=== PATIENT | female | born 1990 | race African-American/Black ===

== ENCOUNTER 2020-05-22 07:15 | Inpatient (IN) | payer OTHER ==
[2020-05-22] MEDS ORDERED: OXYTOCIN 30 UNITS in 0.9% NS 30 UNIT/500 ML INFUS.BAG IVPB ONE (09:29)
[2020-05-22] MEDS: ELECTROLYTE-148 SOLN 1,000 ML IV SCH ×3 (09:30→22:22)
[2020-05-22 09:40] LABS: BASO % 0.4 % (0-2.0); EOS % 2.1 % (0-4.5); HEMATOCRIT 32.7 % (32.4-45.2); HEMOGLOBIN 10.9 GM/dL (10.7-15.3); LYMPH % 24.6 % (8-40); MCHC 33.3 g/dl (32.0-36.0); MEAN CELL VOLUME 87.1 fl (80-96); MEAN PLT VOLUME 10.5 fl (7.5-11.1); MONO % 10.9 % (3.8-10.2); PLATELET COUNT 103 K/MM3 (134-434); RBC 3.76 M/mm3 (3.60-5.2); RDW 13.9 % (11.6-15.6); WHITE BLOOD COUNT 6.1 K/mm3 (4.0-10.0)
[2020-05-22 09:49] LABS: INR 0.9 (0.83-1.09); PROTHROMBIN TIME (PATIENT) 10.6 SEC (9.7-13.0)
[2020-05-22 09:52] LABS: ACTIVATED PTT 28.8 SECONDS (25.2-36.5)
[2020-05-22] MEDS: OXYTOCIN 30 UNITS in 0.9% NS 30 UNIT/500 ML INFUS.BAG IVPB SCH (10:00)
[2020-05-22 10:16] LABS: BLOOD UREA NITROGEN 3.2 mg/dL (7-18); CALCIUM 8.6 mg/dL (8.5-10.1); CREATININE 0.4 mg/dL (0.55-1.3); POTASSIUM 3.9 mmol/L (3.5-5.1)
[2020-05-22 10:39] VITALS: BMI 29.6
[2020-05-22 12:39] LABS: EPI CELLS 19 /uL (0-25.1); HYALINE CASTS 1 /uL (0-3.1); URINE APPEARANCE CLEAR; URINE BACTERIA 945 /uL (0-1359); URINE BILIRUBIN NEGATIVE (NEGATIVE); URINE COLOR YELLOW; URINE GLUCOSE (UA) NEGATIVE (NEGATIVE); URINE KETONE NEGATIVE (NEGATIVE); URINE LEUK ESTERASE 3+ (NEGATIVE); URINE NITRITE NEGATIVE (NEGATIVE); URINE PROTEIN NEGATIVE (NEGATIVE); URINE RBC 6 /uL (0-23.9); URINE UROBILINOGEN 0.2 mg/dL (0.2-1.0); URINE WBC 163 /uL (0-25.8)
[2020-05-22] MEDS ORDERED: PROMETHAZINE HCL 25 MG/1 ML VIAL ONE ×2 (13:10→18:38)
[2020-05-22] MEDS ORDERED: BUTORPHANOL TARTRATE 2 MG/ML VIAL ONE ×2 (13:10→18:38)
[2020-05-22] MEDS ORDERED: PROMETHAZINE HCL 25 MG/1 ML VIAL IVPUSH ONE ×2 (13:26→18:48)
[2020-05-22] MEDS ORDERED: BUTORPHANOL TARTRATE 1 MG/ML VIAL IVPB ONE ×2 (13:26→18:48)
--- NOTE | 2020-05-22 18:53 | HP ---
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: No: Alzheimer's, CVA, Dementia, Migraine, Multiple Sclerosis, Peripheral Neuropathy, Parkinson's, Seizure, Syncope, TIA, Vertigo, Other Cardiovascular: No: AFIB, Aneurysm, Aortic Insufficiency, Aortic Stenosis, CAD, CHF, Deep Vein Thrombosis, HTN, Hyperlipdemia, IA, Mitral Insufficiency, Mitral Stenosis, Murmur, Pulmonary Hypertension, Other Pulmonary: No: Asthma, Bronchitis, Cancer, COPD, O2 Dependent, Pneumonia, Previously Intubated, Pulmonary Embolus, Pulmonary Fibrosis, Sleep Apnea, Other Gastrointestinal: No: Ascites, Cancer, Constipation, Crohn's Disease, Diverticulitis, Diverticulosis, Esophageal Varices, Gastritis, GERD, GI Bleed, Hemorrhoids, Hiatal Hernia, Inflamatory Bowel Disease, Irritable Bowel Disease, Pancreatitis, Peptic Ulcer Disease, Ulcerative Colitis, Other Hepatobiliary: No: Cirrhosis, Cholelithiasis, Cholecystitis, Choledocholithiasis, Hepatitis A, Hepatitis B, Hepatitis C, Other Renal/: No: Renal Failure, Renal Inusuff, BPH, Cancer, Hematuria, Hemodialysis, Neurogenic Bladder, Renal Calculi, UTI, Other Reproductive: No: Ectopic , Endometriosis, Fibroids, PID, Polycystic Ovary Syndrome, Postmenopausal, Other ...: 1 ...Para: 0 ...Term: 0 ...: 0 ...Spon : 0 ...Induced : 0 ...Living Children: 0 ...Multiple Gestation: 0 ... Weeks Gestation by Dates: 41.1 ...EDC by Dates: 05/14/20 Heme/Onc: No: Anemia, B12 Deficiency, Bleeding Disorder, Cancer, Current Chemotherapy, Current Radiation Therapy, Hemochromatosis, Hypercoaguable State, Myeloproliferative Synd, Sickle Cell Disease, Sickle Cell Trait, Thrombocytopenia, Other Infectious Disease: No: AIDS, C-Diff, Herpes Zoster, HIV, MRSA, STD's, Tuberculosis, VREF, Other Psych: No: Addictions, Anxiety, Bipolar, Depression, Panic, Psychosis, Schizophrenia, Other Musculoskeletal: No: Bursitis, Chronic low back pain, Hemiparesis, Hemiplegia, Osteoarthritis, Paraplegia, Other Rheumatology: No: Fibromyalgia, Gout, Lupus, Rheumatoid Arthritis, Sarcoidosis, Vasculitis, Other ENT: No: Allergic Rhinitis, Sinusitis, Other Endocrine: No: Oliver's Disease, [place]'s Disease, Diabetes Insipidus, Diabetes Mellitus, Hyperparathyroidism, Hyperthyroidism, Hypothyroidism, Osteopenia, SIADH, Other Dermatology: No: Basal Cell, Cellulitis, Eczema, Melanoma, Psoriasis, Squamous Cell, Other - Past Surgical History Past Surgical History: No: None, AAA Repair, AICD, Amputation, Appendectomy, Arthrosocopy, AV Fistula/Graft, Bariatric Surgery, Breast Biopsy, Bypass, CABG, Carotid Endarterectomy, Cataract Removal, Cholecystectomy, Colectomy, Colonoscopy, Colostomy, Craniotomy, , Cystectomy, Hernia Repair, Hysterectomy, Ileal Conduit, Ileosotomy, Joint Replacement, Kidney Transplant, Laminectomy, Liver Transplant, Mastectomy, Nephrectomy, Oopherectomy, Orchiectomy, Permanent Pacemaker, Prostatectomy, Splenectomy, Stent, Thoracotomy, TURP, Tonsillectomy, Tubal Ligation, Upper Endoscopy, Valve Replacement, Vasectomy, Vein Stripping/Ligation Hx Myomectomy: No Hx Transabdominal Cerclage: No - Advance Directives Advance Directives: Yes: Living Will - Smoking History Smoking history: Never smoked Have you smoked in the past 12 months: No - Alcohol/Substance Use Hx Alcohol Use: No History of Substance Use: reports: None - Social History Usual Living Arrangement: Yes: With Significant Other Do you think of yourself as: Straight/Heterosexual ADL: Independent History of Recent Travel: No Home Medications - Allergies Allergies/Adverse Reactions: Allergies Allergy/AdvReac Type Severity Reaction Status Date / Time No Known Allergies Allergy Verified 05/22/20 10:27 - Home Medications Home Medications: Ambulatory Orders Vitamins (Sjr) - 1 tab PO DAILY 05/22/20 Family Medical History Family History: Denies Review of Systems - Review of Systems Constitutional: reports: No Symptoms Eyes: reports: No Symptoms HENT: reports: No Symptoms Neck: reports: No Symptoms Cardiovascular: reports: No Symptoms Respiratory: reports: No Symptoms Gastrointestinal: reports: No Symptoms Genitourinary: reports: No Symptoms Breasts: reports: No Symptoms Reported Musculoskeletal: reports: No Symptoms Integumentary: reports: No Symptoms Neurological: reports: No Symptoms Endocrine: reports: No Symptoms Hematology/Lymphatic: reports: No Symptoms Psychiatric: reports: No Symptoms Physical Exam - Maternity Vital Signs: Vital Signs Temperature 98.2 F 05/22/20 18:00 Pulse Rate 71 05/22/20 16:00 Respiratory Rate 20 05/22/20 16:00 Blood Pressure 126/85 05/22/20 16:00 O2 Sat by Pulse Oximetry (%) Constitutional: Yes: Well Nourished, No Distress, Calm Eyes: Yes: WNL, Conjunctiva Clear, EOM Intact HENT: Yes: WNL, Atraumatic, Normocephalic Neck: Yes: WNL, Supple, Trachea Midline Cardiovascular: Yes: WNL, Regular Rate and Rhythm Lungs: Clear to auscultation Breast(s): Yes: WNL - Abdominal Exam/OB Fundal Height: 42 Number of Fetuses: Single Presentation: Vertex Contractions: Yes Regularity: Irregular Intensity: Mild Monitor Mode: External Heart Rate (range): 150 Heart Rate Location: [facility] Category: I Accelerations: Uniform Decelerations: None - Vaginal Exam/OB Vaginal Bleeding: No Speculum Exam: No Dilatation (cm): 1 Effacement (%): 50 Amniotic Membrane Status: Intact Presentation: Vertex/Position Station: -2 - Physical Exam Musculoskeletal: Yes: WNL Extremities: Yes: WNL Edema: Yes Integumentary: Yes: WNL Deep Tendon Reflex Grade: Normal +2 ...Motor Strength: WNL Psychiatric: Yes: WNL, Alert, Oriented - Labs Lab Results: CBC, BMP 05/22/20 09:27 05/22/20 09:27 Hemorrhage Risk Assessment - Risk Factors Medium Risk Factors: Yes: None High Risk Factors: Yes: None Risk Score: 1 Risk Level: Medium Risk Assessment/Plan for indcution
--- NOTE | 2020-05-22 18:54 | PN ---
Progress Note (short form) - Note Progress Note: 1pm, 1 cm, arom, clear, 60%, -2, uc q 5 min, pain level 7/10, continue pitocin , asking for stadol
--- NOTE | 2020-05-22 18:55 | PN ---
Progress Note (short form) - Note Progress Note: 630 pm, 1 to 2 cm uc q 3 min, cat 1 nst, decline epidural continue pitocin
[2020-05-22] MEDS ORDERED: CITRIC ACID/SODIUM CITRATE 30 ML UNIT-DOSE CUP PO ONE (22:06)
--- NOTE | 2020-05-22 22:09 | PN ---
Progress Note (short form) - Note Progress Note: 10 pm , no cervical change, 1 to 2 cm, pain 10 /10, uc q 3 min, cat 1 nst, for c s
[2020-05-22] MEDS ORDERED: morphine SULFATE/PF 0.5 MG/ML (2cc Syringe - QUVA) ONE (22:36)
[2020-05-22] MEDS ORDERED: OXYTOCIN 10 UNITS/ML VIAL ONE (22:45)
[2020-05-22] MEDS ORDERED: KETOROLAC TROMETHAMINE 30 MG/1 ML VIAL ONE (22:45)
[2020-05-22] MEDS ORDERED: ceFAZolin SODIUM 1 GM VIAL ONE (22:45)
--- NOTE | 2020-05-22 23:36 | PN ---
Progress Note (short form) - Note Progress Note: I assisted Dr. Glass at c/section for the entirety of the case.
[2020-05-22] MEDS ORDERED: IBUPROFEN 800 MG/8 ML IJ IVPB PRN (23:44)
[2020-05-22] MEDS ORDERED: SENNOSIDES/DOCUSATE COMBO (SENNA PLUS) TABLET (UD) PO PRN (23:44)
[2020-05-22] MEDS ORDERED: METHYLERGONOVINE MALEATE 0.2 MG/1 ML AMP IM PRN (23:44)
[2020-05-22] MEDS ORDERED: oxyCODONE HCL 5 MG TABLET PO PRN (23:44)
[2020-05-22] MEDS: OXYTOCIN 20 UNITS in 0.9% NS 20 UNIT/1,000 ML INFUS.BAG IV SCH (23:45)
[2020-05-22] MEDS ORDERED: ONDANSETRON 4 MG/2 ML VIAL IVPUSH PRN (23:48)
--- NOTE | 2020-05-22 23:52 | OP ---
Operative Note - Note: Operative Date: 05/22/20 Pre-Operative Diagnosis: failure to progress Operation: primary ltc s Findings: op Post-Operative Diagnosis: Same as Pre-op Surgeon: Bill Glass Agent Telegrapher: Rashard Geronimo Anesthesia: Spinal Estimated Blood Loss (mls): 500 (no complications , fibroids x 3 ) Operative Report Dictated: Yes
[2020-05-23 08:41] LABS: BASO % 0.3 % (0-2.0); EOS % 0.6 % (0-4.5); HEMATOCRIT 29.4 % (32.4-45.2); LYMPH % 17.6 % (8-40); MCH 29.3 pg (25.7-33.7); MCHC 33.9 g/dl (32.0-36.0); MEAN CELL VOLUME 86.3 fl (80-96); MEAN PLT VOLUME 11.3 fl (7.5-11.1); MONO % 7.8 % (3.8-10.2); NEUT % 73.7 % (42.8-82.8); PLATELET COUNT 100 K/MM3 (134-434); RBC 3.41 M/mm3 (3.60-5.2); RDW 13.9 % (11.6-15.6); WHITE BLOOD COUNT 9.4 K/mm3 (4.0-10.0)
[2020-05-23] MEDS ORDERED: DIPHTH,PERTUSS(ACELL),TET 0.5 ML DISP.SYRIN IM ONE (10:00)
[2020-05-23] MEDS: PRENATAL VITAMINS W/ FOLIC ACID TABLET (FP) PO SCH (10:58)
[2020-05-23] MEDS: IBUPROFEN 600 MG TABLET (FP) PO PRN (15:19)
[2020-05-23] MEDS: ACETAMINOPHEN 325 MG TABLET (FP) PO PRN (15:19)
--- NOTE | 2020-05-23 15:29 | PN ---
Post Progress Note Post Day: 1 Type of Delivery: Primary C/S Vital Signs: Vital Signs Temperature 98.6 F 05/23/20 05:28 Pulse Rate 97 H 05/23/20 05:28 Respiratory Rate 17 05/23/20 13:00 Blood Pressure 126/74 05/23/20 05:28 O2 Sat by Pulse Oximetry (%) 96 05/23/20 05:28 Breast Exam: Yes: Soft Uterus: Yes: Fundus Firm, Fundus below umbilicus Incision: Yes: Dressing dry and intact, Sutures intact Abdomen/GI: Yes: Abdomen soft, Passing flatus, Tolerating PO Lochia: Yes: Serosa Lochia, amount: Small Extremities: Yes: Calves non-tender - Labs Labs: CBC WBC 9.4 K/mm3 (4.0-10.0) 05/23/20 08:05 RBC 3.41 M/mm3 (3.60-5.2) L 05/23/20 08:05 Hgb 10.0 GM/dL (10.7-15.3) L 05/23/20 08:05 Hct 29.4 % (32.4-45.2) L 05/23/20 08:05 MCV 86.3 fl (80-96) 05/23/20 08:05 MCH 29.3 pg (25.7-33.7) 05/23/20 08:05 MCHC 33.9 g/dl (32.0-36.0) 05/23/20 08:05 RDW 13.9 % (11.6-15.6) 05/23/20 08:05 Plt Count 100 K/MM3 (134-434) L 05/23/20 08:05 MPV 11.3 fl (7.5-11.1) H 05/23/20 08:05 Absolute Neuts (auto) 6.9 K/mm3 (1.5-8.0) 05/23/20 08:05 Neutrophils % 73.7 % (42.8-82.8) 05/23/20 08:05 Lymphocytes % 17.6 % (8-40) D 05/23/20 08:05 Monocytes % 7.8 % (3.8-10.2) 05/23/20 08:05 Eosinophils % 0.6 % (0-4.5) 05/23/20 08:05 Basophils % 0.3 % (0-2.0) 05/23/20 08:05 Nucleated RBC % 0 % (0-0) 05/23/20 08:05
--- NOTE | 2020-05-23 15:31 | DS ---
Physical Exam-[employer] Vital Signs: Vital Signs Temperature 98.6 F 05/23/20 05:28 Pulse Rate 97 H 05/23/20 05:28 Respiratory Rate 17 05/23/20 13:00 Blood Pressure 126/74 05/23/20 05:28 O2 Sat by Pulse Oximetry (%) 96 05/23/20 05:28 Constitutional: Yes: Well Nourished, No Distress, Calm Eyes: Yes: WNL, Conjunctiva Clear, EOM Intact HENT: Yes: WNL, Atraumatic, Normocephalic Neck: Yes: WNL, Supple, Trachea Midline Cardiovascular: Yes: WNL, Regular Rate and Rhythm Respiratory: Yes: WNL, Regular, CTA Bilaterally Gastrointestinal: Yes: WNL, Normal Bowel Sounds, Soft ...Rectal Exam: Yes: WNL Renal/: Yes: WNL Pelvis: Yes: WNL External Genitalia: Yes: Normal Internal Exam Deferred: Yes Vaginal Exam: Yes: Normal Cervix: Yes: Normal Uterus: Yes: Normal Adnexa: Normal: Bilateral ....Post : Yes: Uterus firm, Uterus non-tender Breast(s): Yes: WNL Musculoskeletal: Yes: WNL Extremities: Yes: WNL Edema: Yes Integumentary: Yes: WNL Wound/Incision: Yes: Clean/Dry, Well Approximated Neurological: Yes: WNL, Alert, Oriented ...Motor Strength: WNL Psychiatric: Yes: WNL, Alert, Oriented Labs: CBC, BMP 05/23/20 08:05 05/22/20 09:27 Delivery - Delivery Section: Primary Type of Anesthesia: Spinal Delivery, Single - Stages of Labor Date 1st Stage Initiatied: 05/22/20 Time 1st Stage Initiated: 13:10 Date of Delivery: 05/22/20 Time of Delivery: 22:59 Time Placenta Delivered: 23:01 - Condition of Infant Postmaster/Ward Assistant Present: Yes Name: Arina Rachel Infant Gender: Male Weight: 3.714 kg Position: OP Total Hours ROM (Hrs/Mins): 10h2m - 1 Minute Total Score: 9 5 Minutes Total Score: 9 - Wells Feeding Plan Initial Plan: Elected not to breastfeed exclusively throughout hospitalization Discharge Summary Problems reviewed: Yes Reason For Visit: INDUCTION OF LABOR Procedures: Principal: primary lt c s Other Procedures: uneventful Condition: Good - Instructions Diet, Activity, Other Instructions: Physical activity Resume your normal everyday activity as tolerated no heavy lifting or exercise until seen by your surgeon. You may walk unlimited harriett of and climb stairs. You may resume driving the car when you feel safe and comfortable behind the wheel. No sexual activity as instructed. Wound care If you have a bandage, leave it on, and keep dry for 48-72 hours. After that time discard the outer bandage. If they are tapes on the skin under the out of bandage leave them in place. They will peel off in the next 7 to 10 days. Do Not Peel them off. You may shower the day after surgery. If there are tapes present on the skin, you may shower over them. Diet There are no dietary restrictions. Eat healthy, high-fiber foods. Drink 6 to 8 glasses of liquid each day. This will assist in keeping your bowels are regular. Pain management You may take Tylenol or acetaminophen or Ibuprofen (for example, Motrin, Advil etc.) from my pain prescription medication is ordered should be taken as prescribed for moderate to severe pain. Call MD for any of the following: call dr carrillo for 2 weeks appoint Severe pain not relieved by medication Fever of 101 or higher Excessive bleeding or drainage on dressing Inability to urinate Disposition: HOME - Home Medications Comprehensive Discharge Medication List: Ambulatory Orders Vitamins (Sjr) - 1 tab PO DAILY 05/22/20 Prescription Drug Monitoring Program (I-STOP) results: I-STOP reviewed and no issues identified
[2020-05-23] MEDS ORDERED: BISACODYL 10 MG SUPP.RECT RC PRN (23:44)
[2020-05-24] MEDS: ACETAMINOPHEN 325 MG TABLET (FP) PO PRN ×4 (03:11→20:56)
[2020-05-24] MEDS: IBUPROFEN 600 MG TABLET (FP) PO PRN (03:12)
[2020-05-24] MEDS: DEXTROSE 5%-LACTATED RINGERS 1,000 ML IV SCH ×2 (04:35→20:54)
[2020-05-24] MEDS: OXYTOCIN 30 UNITS in 0.9% NS 30 UNIT/500 ML INFUS.BAG IVPB SCH ×2 (04:35→20:54)
[2020-05-24] MEDS: ELECTROLYTE-148 SOLN 1,000 ML IV SCH ×3 (04:35→20:54)
[2020-05-24] MEDS: OXYTOCIN 20 UNITS in 0.9% NS 20 UNIT/1,000 ML INFUS.BAG IV SCH (04:36)
[2020-05-24] MEDS: oxyCODONE HCL 5 MG TABLET PO PRN ×3 (06:05→20:56)
[2020-05-24] MEDS: PRENATAL VITAMINS W/ FOLIC ACID TABLET (FP) PO SCH (09:08)
[2020-05-24] MEDS: SIMETHICONE 80 MG TAB.CHEW (FP) PO PRN (09:12)
--- NOTE | 2020-05-25 07:34 | PN ---
Post Progress Note Post Day: 3 Type of Delivery: Primary C/S Vital Signs: Vital Signs Temperature 98.4 F 05/24/20 20:44 Pulse Rate 98 H 05/24/20 20:44 Respiratory Rate 18 05/24/20 20:44 Blood Pressure 131/80 05/24/20 20:44 O2 Sat by Pulse Oximetry (%) 97 05/24/20 20:44 Breast Exam: Yes: Soft Uterus: Yes: Fundus Firm, Fundus below umbilicus Incision: Yes: Dressing dry and intact, Sutures intact Abdomen/GI: Yes: Abdomen soft, Passing flatus, Tolerating PO Lochia: Yes: Serosa Lochia, amount: Small Extremities: Yes: Calves non-tender Perineum: Yes: Intact Activity: Ambulating (dc pt home today ) - Labs Labs: CBC WBC 9.4 K/mm3 (4.0-10.0) 05/23/20 08:05 RBC 3.41 M/mm3 (3.60-5.2) L 05/23/20 08:05 Hgb 10.0 GM/dL (10.7-15.3) L 05/23/20 08:05 Hct 29.4 % (32.4-45.2) L 05/23/20 08:05 MCV 86.3 fl (80-96) 05/23/20 08:05 MCH 29.3 pg (25.7-33.7) 05/23/20 08:05 MCHC 33.9 g/dl (32.0-36.0) 05/23/20 08:05 RDW 13.9 % (11.6-15.6) 05/23/20 08:05 Plt Count 100 K/MM3 (134-434) L 05/23/20 08:05 MPV 11.3 fl (7.5-11.1) H 05/23/20 08:05 Absolute Neuts (auto) 6.9 K/mm3 (1.5-8.0) 05/23/20 08:05 Neutrophils % 73.7 % (42.8-82.8) 05/23/20 08:05 Lymphocytes % 17.6 % (8-40) D 05/23/20 08:05 Monocytes % 7.8 % (3.8-10.2) 05/23/20 08:05 Eosinophils % 0.6 % (0-4.5) 05/23/20 08:05 Basophils % 0.3 % (0-2.0) 05/23/20 08:05 Nucleated RBC % 0 % (0-0) 05/23/20 08:05
[2020-05-25] MEDS: oxyCODONE HCL 5 MG TABLET PO PRN (07:55)
[2020-05-25] MEDS: IBUPROFEN 600 MG TABLET (FP) PO PRN (07:55)
[2020-05-25] MEDS: SIMETHICONE 80 MG TAB.CHEW (FP) PO PRN (07:55)
[2020-05-25 10:01] VITALS: BP 131/84; PULSE 90; TEMP 98
[2020-05-25] MEDS: PRENATAL VITAMINS W/ FOLIC ACID TABLET (FP) PO SCH (10:49)
--- NOTE | 2020-05-29 17:20 | PATH ---
Surgical Pathology Report Patient Name: ADRIANA BOGGS Med. Rec. 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 TRIVASCULAR CORD. MEMBRANES WITH NO DIAGNOSTIC ABNORMALITIES. Electronically Signed Theresa Stone M.D. Gross Description The specimen is received fresh labeled placenta and is a 491 gram, 20.5 x 19.0 x 2.5 cm. placenta with attached membranes and umbilical cord. The attached membranes are jacobo, translucent with focal opacities and insert marginally. The umbilical cord measures 44 cm. in length and averages 1.1 cm. in diameter. The cord inserts eccentrically, 5.5 cm. to the nearest margin. No true knots or strictures are identified. Cut surface of the umbilical cord reveals 3 vessels. The surface is bautista-blue with minimal fibrin deposition and appropriate caliber vessels. The maternal surface is red-brown with focal defects. Sectioning reveals red-brown, spongy parenchyma. No lesions are identified. [place] sections are submitted in three cassettes as follows: 1- membrane rolls and umbilical cord; 2-3- full thickness sections of placenta. /05/28/2020 saudi05/28/2020
--- NOTE | 2020-05-31 08:52 | OP ---
DATE OF OPERATION: 05/22/2020 PREOPERATIVE DIAGNOSIS: Failure to progress, occiput posterior presentation. POSTOPERATIVE DIAGNOSIS: Failure to progress, occiput posterior presentation. PROCEDURE: Primary low transverse section. SURGEON: Bill Glass MD CORPORATE INTERN: Rashard Geronimo MD ANESTHESIA: Spinal. INDICATIONS: This is a 30-year-old female patient 41 weeks and 1 day , came into the hospital for induction process and the patient had artificial rupture of membranes, had Pitocin and the patient was in labor for more than 12 to 14 hours and patient's cervix still about 2 cm, and the patient was suspected to have more than 8-pound baby as macrosomia and the patient was in severe pain and patient started having some variable decelerations and some nonreassuring heart rate tracing. So, patient was in a lot of pain. Pain level 8 out of 10 and patient with the above indication, more than 14 to 16 hours of labor and no progress, and patient was taken to the OR for failure to progress. PROCEDURE: So, patient was taken to the OR, placed on the operating table in the supine position after spinal anesthesia was obtained. The patient's abdomen and pelvis were prepped and draped in the usual sterile manner. Pfannenstiel incision was made. Incision was made through skin, subcutaneous tissue until the fascia was nicked in the midline. The fascia was extended bilaterally. Intraperitoneal cavity was entered. Bladder flap was not created. Low transverse segment was entered. Baby was delivered from OP presentation. Baby was hand delivered to the health care liaison after umbilical cord doubly clamped and cut. Placenta was removed. Uterus was closed in a single layer, first layer interlocking Vicryl sutures. Good hemostasis. Both gutters cleaned. Both fallopian tubes and ovaries were within normal limits. However, there were 3 fibroids seen on the uterus and they all appeared to be about 3 x 4 cm, anterior and posterior fundal part of the uterus. No complications. Draining clear urine. Blood loss about 500 mL. Peritoneum was closed. Fascia was closed. Skin was closed. Transferred to recovery room in stable condition. MD NAOMI CORONEL/[id number]
== END 2020-05-25 13:30 | disposition home or self-care (01) | DRG 540 ==
LOC: JLDR 07:15 → J3N 05-23 01:33 → J3W 05-24 15:36
PROVIDERS: ADMIT Obstetrics & Gynecology; ATTEND Obstetrics & Gynecology
PROC: 10D00Z1 Extraction of Products of Conception, Low, Open Approach (ICD-10-PCS; principal; 2020-05-22)
PROC: 10907ZC Drainage of Amniotic Fluid, Therapeutic from Products of Conception, Via Natural or Artificial Opening (ICD-10-PCS; 2020-05-22)
PROC: 3E033VJ Introduction of Other Hormone into Peripheral Vein, Percutaneous Approach (ICD-10-PCS; 2020-05-22)
DX: O48.0 Post-term pregnancy (principal); Z3A.41 41 weeks gestation of pregnancy; Z37.0 Single live birth; O62.0 Primary inadequate contractions; O32.4XX0 Maternal care for high head at term, not applicable or unspecified; O34.13 Maternal care for benign tumor of corpus uteri, third trimester; D25.9 Leiomyoma of uterus, unspecified
CPT/HCPCS: 36415; 80048; 81003; 85025; 85610; 85730; 86780; 86850; 86900; 86901; 87389; 88307-TC; 90715

== ENCOUNTER 2021-10-07 08:00 | Inpatient (IN) | payer OTHER ==
[2021-10-08] MEDS ORDERED: ELECTROLYTE-148 SOLN 500 ML IV ONE (11:30)
[2021-10-08] MEDS ORDERED: CITRIC ACID/SODIUM CITRATE 30 ML UNIT-DOSE CUP PO ONE (11:30)
[2021-10-08 11:50] VITALS: BMI 27.3
[2021-10-08] MEDS: ELECTROLYTE-148 SOLN 1,000 ML IV SCH (12:00)
[2021-10-08] MEDS ORDERED: BUPIVACAINE HCL/PF 0.25% (2.5MG/ML) 10 ML VIAL ONE (13:06)
[2021-10-08] MEDS ORDERED: PHENYLEPHRINE HCL 10 MG/1 ML SINGLE DOSE VIAL ONE (13:28)
[2021-10-08] MEDS ORDERED: PROPOFOL 20 ML ONE ×2 (13:40)
[2021-10-08] MEDS ORDERED: ACETAMINOPHEN 325 MG TABLET (FP) PO PRN (15:04)
[2021-10-08] MEDS ORDERED: METHYLERGONOVINE MALEATE 0.2 MG/1 ML AMP IM PRN (15:04)
[2021-10-08] MEDS ORDERED: IBUPROFEN 800 MG/8 ML IJ IVPB PRN (15:04)
[2021-10-08] MEDS ORDERED: OXYTOCIN 20 UNITS in 0.9% NS 20 UNIT/1,000 ML INFUS.BAG IV ONE (15:40)
[2021-10-08] MEDS: OXYTOCIN 20 UNITS in 0.9% NS 20 UNIT/1,000 ML INFUS.BAG IV SCH (15:40)
[2021-10-09 08:28] LABS: BASO % 0.3 % (0-2.0); EOS % 1.9 % (0-4.5); HEMATOCRIT 26.1 % (32.4-45.2); HEMOGLOBIN 8.5 GM/dL (10.7-15.3); LYMPH % 21.2 % (8-40); MCH 27.9 pg (25.7-33.7); MCHC 32.5 g/dl (32.0-36.0); MEAN CELL VOLUME 85.6 fl (80-96); MEAN PLT VOLUME 10.7 fl (7.5-11.1); MONO % 8.4 % (3.8-10.2); NEUT % 68.2 % (42.8-82.8); PLATELET COUNT 120 10^3/uL (134-434); RBC 3.04 M/mm3 (3.60-5.2); RDW 13.8 % (11.6-15.6); WHITE BLOOD COUNT 7.5 K/mm3 (4.0-10.0)
[2021-10-09] MEDS: oxyCODONE HCL 5 MG TABLET PO PRN ×3 (09:20→21:08)
[2021-10-09] MEDS: PRENATAL VITAMINS W/ FOLIC ACID TABLET (FP) PO SCH (09:20)
[2021-10-09] MEDS: SIMETHICONE 80 MG TAB.CHEW (FP) PO PRN ×2 (14:51→21:08)
[2021-10-09] MEDS ORDERED: BISACODYL 10 MG SUPP.RECT RC PRN (15:04)
[2021-10-09] MEDS: IBUPROFEN 600 MG TABLET (FP) PO PRN (17:06)
[2021-10-09] MEDS: OXYTOCIN 20 UNITS in 0.9% NS 20 UNIT/1,000 ML INFUS.BAG IV SCH (19:54)
[2021-10-09] MEDS: ELECTROLYTE-148 SOLN 1,000 ML IV SCH (19:54)
[2021-10-09] MEDS: SENNOSIDES/DOCUSATE COMBO (SENNA PLUS) TABLET (UD) PO PRN (21:08)
[2021-10-10] MEDS: oxyCODONE HCL 5 MG TABLET PO PRN ×3 (08:28→21:00)
[2021-10-10] MEDS: SIMETHICONE 80 MG TAB.CHEW (FP) PO PRN ×2 (08:28→20:59)
[2021-10-10] MEDS: PRENATAL VITAMINS W/ FOLIC ACID TABLET (FP) PO SCH (09:56)
[2021-10-10] MEDS: SENNOSIDES/DOCUSATE COMBO (SENNA PLUS) TABLET (UD) PO PRN (20:59)
[2021-10-11] MEDS: SIMETHICONE 80 MG TAB.CHEW (FP) PO PRN (08:19)
[2021-10-11] MEDS: IBUPROFEN 600 MG TABLET (FP) PO PRN (08:19)
[2021-10-11] MEDS: PRENATAL VITAMINS W/ FOLIC ACID TABLET (FP) PO SCH (09:27)
[2021-10-11 11:29] VITALS: BP 115/79; PULSE 92; TEMP 98.1
== END 2021-10-11 13:05 | disposition home or self-care (01) | DRG 540 ==
LOC: JLDR 10-08 11:00 → J3W 10-08 16:44
PROVIDERS: ADMIT Obstetrics & Gynecology; ATTEND Obstetrics & Gynecology
PROC: 10D00Z1 Extraction of Products of Conception, Low, Open Approach (ICD-10-PCS; principal; 2021-10-08)
DX: O34.211 Maternal care for low transverse scar from previous cesarean delivery (principal); O34.13 Maternal care for benign tumor of corpus uteri, third trimester; D25.2 Subserosal leiomyoma of uterus; Z3A.39 39 weeks gestation of pregnancy; Z37.0 Single live birth
CPT/HCPCS: 36415; 85025; 88307-TC

== ENCOUNTER 2023-11-17 10:00 | Inpatient (IN) | payer OTHER ==
[2023-11-17] MEDS: ELECTROLYTE-148 SOLN 500 ML IV ONE (11:00)
[2023-11-17] MEDS ORDERED: ELECTROLYTE-148 SOLN 1,000 ML IV SCH (11:45)
[2023-11-17] MEDS: ELECTROLYTE-148 SOLN 1,000 ML IV SCH (12:00)
[2023-11-17 12:20] VITALS: BMI 29.6
[2023-11-17] MEDS: CITRIC ACID/SODIUM CITRATE 30 ML UNIT-DOSE CUP PO ONE (12:30)
[2023-11-17] MEDS ORDERED: morphine SULFATE/PF 1 MG/2 ML (2cc Syringe - QUVA) ONE (13:44)
[2023-11-17] MEDS ORDERED: FENTANYL CITRATE/PF 50 MCG/ML VIAL ONE (13:44)
[2023-11-17] MEDS ORDERED: ONDANSETRON 4 MG/2 ML VIAL ONE (14:17)
[2023-11-17] MEDS ORDERED: OXYTOCIN 10 UNITS/ML VIAL ONE (14:17)
[2023-11-17] MEDS ORDERED: MIDAZOLAM HCL 2 MG/2 ML SINGLE DOSE VIAL ONE (14:28)
[2023-11-17] MEDS ORDERED: KETOROLAC TROMETHAMINE 30 MG/1 ML VIAL ONE (14:29)
[2023-11-17] MEDS ORDERED: METHYLERGONOVINE MALEATE 0.2 MG/1 ML AMP IM PRN (15:27)
[2023-11-17] MEDS ORDERED: OXYTOCIN 20 UNITS in 0.9% NS 20 UNIT/1,000 ML INFUS.BAG IV ONE (17:00)
[2023-11-17] MEDS: OXYTOCIN 20 UNITS in 0.9% NS 20 UNIT/1,000 ML INFUS.BAG IV SCH (17:00)
[2023-11-17] MEDS: IBUPROFEN 800 MG/8 ML IJ IVPB PRN (17:26)
[2023-11-17] MEDS: SIMETHICONE 80 MG TAB.CHEW (FP) PO PRN (21:23)
[2023-11-18] MEDS: oxyCODONE HCL 5 MG TABLET PO PRN ×2 (05:47→19:24)
[2023-11-18] MEDS: FERROUS SO4 325 MG TABLET (FP) PO SCH (08:47)
[2023-11-18 09:11] LABS: BASO % 0.4 % (0-2.0); EOS % 1.3 % (0-4.5); HEMATOCRIT 26.6 % (32.4-45.2); HEMOGLOBIN 8.7 GM/dL (10.7-15.3); LYMPH % 15.2 % (8-40); MCHC 32.5 g/dl (32.0-36.0); MEAN CELL VOLUME 86.3 fl (80-96); MEAN PLT VOLUME 10.6 fl (7.5-11.1); MONO % 7.6 % (3.8-10.2); NEUT % 75.5 % (42.8-82.8); PLATELET COUNT 118 10^3/uL (134-434); RBC 3.09 M/mm3 (3.60-5.2); RDW 14.2 % (11.6-15.6); WHITE BLOOD COUNT 7.9 K/mm3 (4.0-10.0)
[2023-11-18] MEDS: PRENATAL VITAMINS W/ FOLIC ACID TABLET (FP) PO SCH (09:42)
[2023-11-18] MEDS: ACETAMINOPHEN 325 MG TABLET (FP) PO PRN (14:47)
[2023-11-18] MEDS ORDERED: BISACODYL 10 MG SUPP.RECT RC PRN (15:27)
[2023-11-18] MEDS: SENNOSIDES/DOCUSATE COMBO (SENNA PLUS) TABLET (UD) PO PRN (21:28)
[2023-11-19] MEDS: IBUPROFEN 600 MG TABLET (FP) PO PRN (01:37)
[2023-11-20 14:11] VITALS: BP 130/81; PULSE 93; RESP 17; TEMP 97.4
== END 2023-11-20 15:25 | disposition home or self-care (01) | DRG 540 ==
LOC: JLDR 10:04 → J3W 17:15
PROVIDERS: ADMIT Obstetrics & Gynecology; ATTEND Obstetrics & Gynecology
PROC: 10D00Z1 Extraction of Products of Conception, Low, Open Approach (ICD-10-PCS; principal; 2023-11-17)
DX: O34.211 Maternal care for low transverse scar from previous cesarean delivery (principal); N85.8 Other specified noninflammatory disorders of uterus; Z3A.39 39 weeks gestation of pregnancy; Z37.0 Single live birth
CPT/HCPCS: 36415; 85025; 88307-TC; 94010